=== PATIENT | male | born 1985 | race African-American/Black ===

== ENCOUNTER → 2017-08-23 | Outpatient (CLI) | payer OTHER | END | disposition home or self-care (01) | LOC: PCVCIMAG 14:45 | DX: I10 Essential (primary) hypertension (principal); R94.31 Abnormal electrocardiogram [ECG] [EKG]; E78.5 Hyperlipidemia, unspecified; Z82.49 Family history of ischemic heart disease and other diseases of the circulatory system | CPT/HCPCS: 93306; 93351 ==